=== PATIENT | female | born 1935 | race Caucasian/White ===

== ENCOUNTER 2017-08-27 14:04 | Emergency (ER) | payer OTHER ==
[~2017-08-27] VITALS: Ht 160 cm; Wt 54.4 kg
[2017-08-27 14:15] VITALS: BP_SYST 148
--- NOTE | 2017-08-27 14:35 | NUR ---
Patient to ER bed 05 to gown for evaluation. Side rails up. Report given to Drea RN.
--- NOTE | 2017-08-27 14:50 | NUR ---
82year old female presented to ED accompanied by family with LAC RIGHT EYEBROW, DRESSING IN PLACE, +HEADACHE after tripping in a parking lot curb; denies LOC; awaiting for MD assess/eval
[2017-08-27] MEDS ORDERED: NACL 0.9% 1,000 ML IV ONE ×2 (14:54→15:00)
--- NOTE | 2017-08-27 14:59 | NUR ---
labs being performed at bedside; pt cristian
[2017-08-27] MEDS ORDERED: ASPIRIN 81 MG TAB.CHEW PO ONE (15:00)
--- NOTE | 2017-08-27 15:00 | NUR ---
Dr. Bingham at bedside for assess/eval
[2017-08-27 15:15] LABS: BASOPHILS % (AUTO) 0.5 % (0.0-2.0); EOSINOPHILS # (AUTO) 0.1 K/uL (0.0-0.4); EOSINOPHILS % (AUTO) 1.9 % (0.0-4.0); HEMATOCRIT 36.4 % (36-48); HEMOGLOBIN 12.5 g/dL (12.0-16.0); LYMPHOCYTES # (AUTO) 1.1 K/uL (1.0-5.5); MEAN CORPUSCULAR HEMOGLOBIN 30 pg (27-31); MEAN CORPUSCULAR HGB CONC 34 % (32-36); MEAN CORPUSCULAR VOLUME 87 fL (79.0-98.0); MONOCYTES # (AUTO) 0.5 K/uL (0.0-1.0); MONOCYTES % (AUTO) 7.7 % (1.7-9.3); NEUTROPHILS # (AUTO) 4.5 K/uL (1.8-7.7); NEUTROPHILS % (AUTO) 71.9 % (40.0-70.0); PLATELET COUNT (AUTO) 198 K/uL (130-430); RED BLOOD CELL COUNT(AUTO) 4.17 MIL/uL (4.2-6.2); RED CELL DISTRIBUTION WIDTH 15.8 % (9.0-15.0); WHITE BLOOD COUNT (AUTO) 6.2 K/uL (4.8-10.8)
[2017-08-27 15:31] LABS: ANION GAP 6 (5-15); CHLORIDE 97 mmol/L (98-107); GLUCOSE 125 mg/dL (70-99); POTASSIUM 4.3 mmol/L (3.5-5.1); SODIUM SERUM 131 mmol/L (136-145); UREA NITROGEN, BLOOD 15 mg/dL (8-21)
[2017-08-27 15:33] LABS: INR 1.2 (0.8-1.2); PROTHROMBIN TIME 12.6 SECS (9.5-12.5)
--- NOTE | 2017-08-27 15:35 | NUR ---
MERA Colon at bedside performing suture procedure; family at bedside; pt cristian
[2017-08-27 15:39] LABS: ALANINE AMINOTRANSFERASE 32 U/L (12-78); ASPARTATE AMINOTRANSFERASE 33 U/L (10-37); TOTAL BILIRUBIN 1.5 mg/dL (0.0-1.0)
--- NOTE | 2017-08-27 15:45 | NUR ---
endorsed care to Lance RN; pt having procedure performed by MERA Colon; family at bedside; pt cristian
[2017-08-27 16:24] VITALS: BP_SYST 141
--- NOTE | 2017-08-27 16:24 | NUR ---
Patient given written and verbal discharge instructions and verbalizes understanding. ER MD discussed with patient the results and treatment provided. Patient in stable condition. ID arm band removed. IV catheter removed intact and dressing applied, no active bleeding. Rx of tylenol ex strength given. Patient educated on pain management and to follow up with PMD. Pain Scale 0/10. Opportunity for questions provided and answered.
[2017-08-27] MEDS ORDERED: IPRATROPIUM/ALBUTEROL SULFATE 3 ML AMPUL.NEB ONE (18:56)
== END 2017-08-27 16:24 | disposition home or self-care (01) ==
LOC: SED 14:04
DX: S01.111A Laceration without foreign body of right eyelid and periocular area, initial encounter (principal); I48.91 Unspecified atrial fibrillation; I10 Essential (primary) hypertension; Z95.0 Presence of cardiac pacemaker; Z90.710 Acquired absence of both cervix and uterus; Z88.1 Allergy status to other antibiotic agents; Z88.2 Allergy status to sulfonamides; W18.09XA Striking against other object with subsequent fall, initial encounter; Y93.01 Activity, walking, marching and hiking; Y92.510 Bank as the place of occurrence of the external cause; Y99.8 Other external cause status
CPT/HCPCS: 12013; 36415; 70450; 80053; 84484; 85025; 85610; 85730; 93005; 96360; 99285; J7030

== ENCOUNTER 2017-08-28 12:18 | Emergency (ER) | payer OTHER ==
[~2017-08-28] VITALS: Ht 160 cm; Wt 54.4 kg
[2017-08-28 12:38] VITALS: BP_SYST 124
[2017-08-28 15:56] VITALS: BP_SYST 120
== END 2017-08-28 15:56 | disposition home or self-care (01) ==
LOC: SED 12:18
DX: M79.672 Pain in left foot (principal); I48.91 Unspecified atrial fibrillation; I10 Essential (primary) hypertension; Z88.2 Allergy status to sulfonamides; Z88.8 Allergy status to other drugs, medicaments and biological substances; Z90.710 Acquired absence of both cervix and uterus
CPT/HCPCS: 99284